=== PATIENT | female | born 1980 | race Caucasian/White ===

== ENCOUNTER 2021-08-17 14:01 | Emergency (ER) | payer OTHER, SELFPAY ==
--- NOTE | 2021-08-17 14:15 | ED.WOUNDLAC ---
HPI - Wound/Laceration General Chief Complaint: Wound/Laceration Stated Complaint: Infected injection on arms from drugs Time Seen by Provider: 08/17/21 14:18 Source: patient and RN notes reviewed Mode of arrival: ambulatory Limitations: no limitations History of Present Illness HPI narrative: 41-year-old female who is an IV drug user presents to the [facility] with right arm swelling, pain, multiple open and erythema from mid humerus to the tip of her fingers. Decreased range of motion of the wrist and the elbow Denies fevers Review of Systems Review of Systems: All systems reviewed & are unremarkable except as noted in HPI and below Constitutional: Constitutional: Reports no additional constitutional complaints, Denies chills and Denies fever(s) Eyes: Eyes: Reports no additional eye complaints ENT: Reports system reviewed and no additional complaints, except as documented Cardiovascular: Cardiovascular: Reports no additional cardiovascular complaints and Denies chest pain Respiratory: Respiratory: Reports no additional respiratory complaints, Denies cough and Denies dyspnea Gastrointestinal: Gastrointestinal: Reports no additional gastrointestinal complaints, Denies abdominal pain and Denies nausea Musculoskeletal: Musculoskeletal: Reports as per HPI, Reports arthralgias (Right elbow right wrist), Reports joint swelling (Right elbow, right wrist), Reports muscle weakness and Denies numbness Integumentary/Breasts: Skin/Breast: Reports as per HPI, Reports swelling, Reports change in pigmentation, Reports new lesions, Reports non-healing lesions, Reports erythema, Reports skin swelling and Reports sores Neurologic: Reports system reviewed and no additional complaints, except as documented Psychiatric: Psychiatric: Reports no additional psychiatric complaints Allergic/Immunologic: Allergic/Immunologic: Reports no additional allergic/immunologic complaints PMFSH Past Medical History Medical History IV drug user Social History Social History Substance use: current Substance use type: IV drugs Gender identity (if verbalized by the patient): Female Comments At the time of my signature, I reviewed and agree with the nursing past medical, surgical, social, and family history. There is no relevant family history pertinent to the patient complaint. Exam Const: General: healthy appearing, no acute distress and alert Nutritional Appearance: well nourished Orientation/consciousness: patient oriented x3 Limitations: no limitations HENMT: Head: normal to inspection Ears: external ears normal Eyes: Pupils: Equal, round and reactive pupils present Neck: Neck: normal visual inspection, no lymphadenopathy and no meningeal signs Chest: Chest palpation & inspection: normal inspection of the chest Resp: Effort & Inspection: normal respiratory effort Cardio: Rate: regular rate Rhythm: regular rhythm : General: Yes no CVA tenderness Skin: General skin exam: normal color Rashes: no rashes Wounds: wounds noted (Multiple wounds right arm in different stages of healing.) Other: Significant redness, warmth, swelling noted to the right arm, multiple wounds noted in multiple stages of healing. Multiple open wounds with purulent drainage noted Neuro: General: patient oriented x3, moves all extremities, no meningeal signs and no focal motor deficits Cranial nerves: Yes Equal, round and reactive pupils present Speech: normal speech Gait exam (Neuro): Normal gait present Extrem: Right upper extremity: edema, elbow/forearm tenderness, swelling (Generalized of), abnormal ROM and warmth; distal pulses not intact (+1 pulses noted radial, ) and Extremity exam: right hand Left upper extremity: hand vascular exam radial pulse present Details: 1+ and diminished and abnormal capillary refill (3 to 4 seconds in all 5 fingers) and swelling Psych: Appearance: grossly normal and well k
[2021-08-17 14:18] VITALS: BP 101/40; PULSE 100; RESP 20; TEMP 36.4; O2SAT 100
== END 2021-08-17 14:30 | disposition short-term general hospital (02) ==
LOC: EXPCOLL 14:12
PROVIDERS: Emergency Provider Nurse Practitioner
DX: L03.113 Cellulitis of right upper limb (principal)
CPT/HCPCS: 99202; 99212; G0463